=== PATIENT | female | born 1965 | race Caucasian/White ===

== ENCOUNTER 2023-01-31 18:40 | Emergency (ER) | payer BC ==
--- OUTSIDE RECORDS SUMMARY | 2023-01-31 18:47 | XMS REPORT | Continuity of Care Document ---
:1965 Author Organization [facility] t Address [address] [facility] [address] [place] [address] Care Team Providers Name Role Phone Josep Saeed Primary Care Physician Josep Saeed Attending Clinician KATYA CASTILLO Attending Clinician Unavailable Doctor Unassigned, [place] Attending Clinician Unavailable Lab, Ang - Db Attending Clinician Unavailable JOSEP ANTUNEZ Attending Clinician Unavailable j carlos Attending Clinician Unavailable j carlos Admitting Clinician Unavailable Payers Payer Name Policy Type Policy Number Effective Date Expiration Date Susan LEARY - OPEN [id number] 2014 00:00:00 ACCESS PLUS Problems Condition Condition Condition Status Onset Resolution Last Treating Co mments Source Name Details Category Date Date Treatment Clinician Date Encounter Encounter Disease Active 2021-11 Uni vers to to 0-07 [place] [facility] [place] Anxiety Anxiety Disease Active 2021-11 [facility] and [place] 0-07 [place] Gastroesop Gastroesop Disease Active 2021-11 U nivers hageal hageal 0-07 ity of reflux reflux 00:00: [place] disease disease 00 Medical without without Branch esophagiti esophagiti s s Hepatitis, Hepatitis, 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 0-07 it y of 00:00: [place] 00 Medical Branch Mixed Mixed Disease Active 2021-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 hyperlipid 0-07 it y of emia emia 00:00: [place] [facility] Allergy, Allergy, Disease Active 2021-11 Unive rs initial initial 0-07 [place] Insomnia, Insomnia, Disease Active 2021-11 Uni vers unspecifie unspecifie 0-07 it y of d type d type 00:00: [place] 00 Medical Branch Urge Urge Disease Active 2021-11 Univers incontinen incontinen 0-07 it y of ce ce 00:00: [place] [id number] Medical Branch Need for Need for Disease Active 2021-11 Unive rs vaccinatio vaccinatio 0-07 it y of n n 00:00: [place] [facility] [place] Allergies, Adverse Reactions, Alerts Allergy Allergy Status Severity Reaction(s) Onset Inactive Treating Comm ents Source Name Type Date Date Clinician NO KNOWN Drug Active Univers ALLERGIE Class ity of S [facility] Social History Social Habit Start Date Stop Date Quantity Comments Source Exposure to 2022-09-05 2022-09-15 [facility]00 [facility] (event) [place] Tobacco use and 2022-09-15 2022-09-15 Smokeless tobacco Un iversity of exposure 00:00:00 00:00:00 non-user [facility] Alcohol intake 2022-09-15 2022-09-15 Current drinker Unive rsity of 00:00:00 00:00:00 of alcohol [facility] (finding) [place] Alcohol Comment 2022-09-15 2022-09-15 1-2 a week Universit y of 00:00:00 00:00:00 [facility] Sex [birth year] Universit y of 00:00:00 00:00:00 [facility] Smoking Status Start Date Stop Date Source Tobacco smoking consumption Univ ersity of [facility] unknown [place] Never smoked tobacco [facility] Medications Ordered Filled Start Stop Current Ordering Indication Dosage Frequency Signature Comments Components Source Medication Medication Date Date Medication? Clinician (SIG) Name Name MELOXICAM Yes [id number] 7.5mg TAKE 1 Univers 7.5 mg 2-28 TABLET BY ity of tablet 00:00: MOUTH IN [place] 00 THE Medical MORNING. Branch estradioL Yes [id number] Apply 1g Univers (ESTRACE) 1-13 vaginally ity o f 0.01 % (0.1 00:00: at bedtime [place] mg/gram) 00 every Medical vaginal night for Branch cream 2 weeks and then apply 1g vaginally at bedtime 2-3 times per week solifenacin 2022-0 Yes [id number] 10mg Take 1 Univers (VESICARE) 1-13 tablet by ity of 10 mg 00:00: mouth in [place] tablet 00 the Medical morning. Branch estradioL 2022-0 Yes [id number] Apply 1g Univers (ESTRACE) 1-13 vaginally ity o f 0.01 % (0.1 00:00: at bedtime [place] mg/gram) 00 every Medical vaginal night for Branch cream 2 weeks and then apply 1g vaginally at bedtime 2-3 times per week solifenacin 2022-0 Yes [id number] 10mg Take 1 Univers (VESICARE) 1-13 tablet by ity of 10 mg 00:00: mouth in [place] tablet 00 the Medical morning. Branch estradioL 2022-0 Yes [id number] Apply 1g Univers (ESTRACE) 1-13 vaginally ity o f 0.01 % (0.1 00:00: at bedtime [place] mg/gram) 00 every Medical vaginal night for Branch cream 2 weeks and then apply 1g vaginally at bedtime 2-3 times per week solifenacin 2022-0 Yes [id number] 10mg Take 1 Univers (VESICARE) 1-13 tablet by ity of 10 mg 00:00: mouth in [place] tablet 00 the Medical morning. Branch solifenacin 2021-11 Yes [id number] 10mg Take 1 Univers (VESICARE) 0-31 tablet by ity of 10 mg 00:00: mouth in [place] tablet 00 the Medical morning. Branch solifenacin 2021-11 Yes [id number] 10mg Take 1 Univers (VESICARE) 0-31 tablet by ity of 10 mg 00:00: mouth in [place] tablet 00 the Medical morning. Branch solifenacin 2021-11 Yes [id number] 10mg Take 1 Univers (VESICARE) 0-31 tablet by ity of 10 mg 00:00: mouth in [place] tablet 00 the Medical morning. Branch solifenacin 2021-11 Yes [id number] 10mg Take 1 Univers (VESICARE) 0-31 tablet by ity of 10 mg 00:00: mouth in [place] tablet 00 the Medical morning. Branch solifenacin 2021-11 Yes [id number] 10mg Take 1 Univers (VESICARE) 0-31 tablet by ity of 10 mg 00:00: mouth in [place] tablet 00 the Medical morning. Branch solifenacin 2021-11 Yes [id number] 10mg Take 1 Univers (VESICARE) 0-31 tablet by ity of 10 mg 00:00: mouth in [place] tablet 00 the Medical morning. Branch meloxicam 2021-11 Yes [id number] 7.5mg Take 1 Univers 7.5 mg 0-14 tablet by ity of tablet 00:00: mouth in [place] 00 the Medical morning. Branch meloxicam 2021-11 Yes [id number] 7.5mg Take 1 Univers 7.5 mg 0-14 tablet by ity of tablet 00:00: mouth in [place] 00 the Medical morning. Branch meloxicam 2021-11 Yes [id number] 7.5mg Take 1 Univers 7.5 mg 0-14 tablet by ity of tablet 00:00: mouth in [place] the Medical morning. Branch meloxicam 2021-11 Yes [id number] 7.5mg Take 1 Univers 7.5 mg 0-14 tablet by ity of tablet 00:00: mouth in [place] the Medical morning. Branch meloxicam 2021-11 Yes [id number] 7.5mg Take 1 Univers 7.5 mg 0-14 tablet by ity of tablet 00:00: mouth in [place] 00 the Medical morning. Branch meloxicam 2021-11 Yes [id number] 7.5mg Take 1 Univers 7.5 mg 0-14 tablet by ity of tablet 00:00: mouth in [place] 00 the Medical morning. Branch meloxicam 2021-11 Yes [id number] 7.5mg Take 1 Univers 7.5 mg 0-14 tablet by ity of tablet 00:00: mouth in [place] 00 the Medical morning. Branch meloxicam 2021-11 Yes [id number] 7.5mg Take 1 Univers 7.5 mg 0-14 tablet by ity of tablet 00:00: mouth in [place] 00 the Medical morning. Branch meloxicam 2021-11 Yes [id number] 7.5mg Take 1 Univers 7.5 mg 0-14 tablet by ity of tablet 00:00: mouth in [place] 00 the Medical morning. Branch meloxicam 2021-11 Yes [id number] 7.5mg Take 1 Univers 7.5 mg 0-14 tablet by ity of tablet 00:00: mouth in [place] 00 the Medical morning. Branch meloxicam 2021-11 Yes [id number] 7.5mg Take 1 Univers 7.5 mg 0-14 tablet by ity of tablet 00:00: mouth in [place] 00 the Medical morning. Branch meloxicam 2021-11 Yes [id number] 7.5mg Take 1 Univers 7.5 mg 0-14 tablet by ity of tablet 00:00: mouth in [place] 00 the Medical morning. Branch meloxicam 2021-11 Yes [id number] 7.5mg Take 1 Univers 7.5 mg 0-14 tablet by ity of tablet 00:00: mouth in [place] 00 the Medical morning. Branch meloxicam 2021-113- No [id number] 7.5mg Take 1 Univers 7.5 mg 0-14 -28 tablet by ity of tablet 00:00: 00:00 mouth in [place] 00 :00 the Medical morning. Branch omega-3s-dh 2021-11 Yes 600mg Take 600 U nivers a-epa-fish 0-07 mg by ity of oil (FISH 09:14: mouth [place] OIL) 33 daily. Medical 350-600 mg Branch Cap omega-3s-dh 2021-11 Yes 600mg Take 600 U nivers a-epa-fish 0-07 mg by ity of oil (FISH 09:14: mouth [place] OIL) 33 daily. Medical 350-600 mg Branch Cap omega-3s-dh 2021-11 Yes 600mg Take 600 U nivers a-epa-fish 0-07 mg by ity of oil (FISH 09:14: mouth [place] OIL) 33 daily. Medical 350-600 mg Branch Cap omega-3s-dh 2021-11 Yes 600mg Take 600 U nivers a-epa-fish 0-07 mg by ity of oil (FISH 09:14: mouth [place] OIL) 33 daily. Medical 350-600 mg Branch Cap omega-3s-dh 2021-11 Yes 600mg Take 600 U nivers a-epa-fish 0-07 mg by ity of oil (FISH 09:14: mouth [place] OIL) 33 daily. Medical 350-600 mg Branch Cap omega-3s-dh 2022-1 Yes 600mg Take 600 U nivers a-epa-fish 0-07 mg by ity of oil (FISH 09:14: mouth [place] OIL) 33 daily. Medical 350-600 mg Branch Cap omega-3s-dh 2022-1 Yes 600mg Take 600 U nivers a-epa-fish 0-07 mg by ity of oil (FISH 09:14: mouth [place] OIL) 33 daily. Medical 350-600 mg Branch Cap omega-3s-dh 2022-1 Yes 600mg Take 600 U nivers a-epa-fish 0-07 mg by ity of oil (FISH 09:14: mouth [place] OIL) 33 daily. Medical 350-600 mg Branch Cap omega-3s-dh 2022-1 Yes 600mg Take 600 U nivers a-epa-fish 0-07 mg by ity of oil (FISH 09:14: mouth [place] OIL) 33 daily. Medical 350-600 mg Branch Cap omega-3s-dh 2-1 Yes 600mg Take 600 U nivers a-epa-fish 0-07 mg by ity of oil (FISH 09:14: mouth [place] OIL) 33 daily. Medical 350-600 mg Branch Cap omega-3s-dh 2022-1 Yes 600mg Take 600 U nivers a-epa-fish 0-07 mg by ity of oil (FISH 09:14: mouth [place] OIL) 33 daily. Medical 350-600 mg Branch Cap omega-3s-dh 2-1 Yes 600mg Take 600 U nivers a-epa-fish 0-07 mg by ity of oil (FISH 09:14: mouth [place] OIL) 33 daily. Medical 350-600 mg Branch Cap omega-3s-dh 2-1 Yes 600mg Take 600 U nivers a-epa-fish 0-07 mg by ity of oil (FISH 09:14: mouth [place] OIL) 33 daily. Medical 350-600 mg Branch Cap omega-3s-dh 2022-1 Yes 600mg Take 600 U nivers a-epa-fish 0-07 mg by ity of oil (FISH 09:14: mouth [place] OIL) 33 daily. Medical 350-600 mg Branch Cap omega-3s-dh 2022-1 Yes 600mg Take 600 U nivers a-epa-fish 0-07 mg by ity of oil (FISH 09:14: mouth [place] OIL) 33 daily. Medical 350-600 mg Branch Cap omega-3s-dh 2021-11 Yes 600mg Take 600 U nivers a-epa-fish 0-07 mg by ity of oil (FISH 09:14: mouth [place] OIL) 33 daily. Medical 350-600 mg Branch Cap omega-3s-dh 2021-11 Yes 600mg Take 600 U nivers a-epa-fish 0-07 mg by ity of oil (FISH 09:14: mouth [place] OIL) 33 daily. Medical 350-600 mg Branch Cap omega-3s-dh 2021-11 Yes 600mg Take 600 U nivers a-epa-fish 0-07 mg by ity of oil (FISH 09:14: mouth [place] OIL) 33 daily. Medical 350-600 mg Branch Cap cyanocobala 2021-11 Yes 5000ug Take 5,000 Univers min, 0-07 mcg by ity of vitamin 09:12: mouth [place] B-12, 2,500 36 daily. Medica l mcg Tab Branch Cetirizine 2021-11 Yes 10mg Take 10 mg U nivers (ZYRTEC) 10 0-07 by mouth ity of mg capsule 09:12: daily. [place] [address] Medical Branch cyanocobala 2021-11 Yes 5000ug Take 5,000 Univers min, 0-07 mcg by ity of vitamin 09:12: mouth [place] B-12, 2,500 36 daily. Medica l mcg Tab Branch Cetirizine 2021-11 Yes 10mg Take 10 mg U nivers (ZYRTEC) 10 0-07 by mouth ity of mg capsule 09:12: daily. [place] [address] Medical Branch cyanocobala 2021-11 Yes 5000ug Take 5,000 Univers min, 0-07 mcg by ity of vitamin 09:12: mouth [place] B-12, 2,500 36 daily. Medica l mcg Tab Branch Cetirizine 2021-11 Yes 10mg Take 10 mg U nivers (ZYRTEC) 10 0-07 by mouth ity of mg capsule 09:12: daily. [place] [address] Medical Branch cyanocobala 2021-11 Yes 5000ug Take 5,000 Univers min, 0-07 mcg by ity of vitamin 09:12: mouth [place] B-12, 2,500 36 daily. Medica l mcg Tab Branch Cetirizine 2022-1 Yes 10mg Take 10 mg U nivers (ZYRTEC) 10 0-07 by mouth ity of mg capsule 09:12: daily. [address] cyanocobala 2021-11 Yes 5000ug Take 5,000 Univers min, 0-07 mcg by ity of vitamin 09:12: mouth [place] B-12, 2,500 36 daily. Medica l mcg Tab Branch Cetirizine 2021-11 Yes 10mg Take 10 mg U nivers (ZYRTEC) 10 0-07 by mouth ity of mg capsule 09:12: daily. [address] cyanocobala 2021-11 Yes 5000ug Take 5,000 Univers min, 0-07 mcg by ity of vitamin 09:12: mouth [place] B-12, 2,500 36 daily. Medica l mcg Tab Branch Cetirizine 2021-11 Yes 10mg Take 10 mg U nivers (ZYRTEC) 10 0-07 by mouth ity of mg capsule 09:12: daily. [address] cyanocobala 2021-11 Yes 5000ug Take 5,000 Univers min, 0-07 mcg by ity of vitamin 09:12: mouth [place] B-12, 2,500 36 daily. Medica l mcg Tab Branch Cetirizine 2021-11 Yes 10mg Take 10 mg U nivers (ZYRTEC) 10 0-07 by mouth ity of mg capsule 09:12: daily. [address] cyanocobala 2021-11 Yes 5000ug Take 5,000 Univers min, 0-07 mcg by ity of vitamin 09:12: mouth [place] B-12, 2,500 36 daily. Medica l mcg Tab Branch Cetirizine 2021-11 Yes 10mg Take 10 mg U nivers (ZYRTEC) 10 0-07 by mouth ity of mg capsule 09:12: daily. [address] cyanocobala 2021-11 Yes 5000ug Take 5,000 Univers min, 0-07 mcg by ity of vitamin 09:12: mouth [place] B-12, 2,500 36 daily. Medica l mcg Tab Branch Cetirizine 2021-11 Yes 10mg Take 10 mg U nivers (ZYRTEC) 10 0-07 by mouth ity of mg capsule 09:12: daily. [address] cyanocobala 2021-11 Yes 5000ug Take 5,000 Univers min, 0-07 mcg by ity of vitamin 09:12: mouth [place] B-12, 2,500 36 daily. Medica l mcg Tab Branch Cetirizine 2021-11 Yes 10mg Take 10 mg U nivers (ZYRTEC) 10 0-07 by mouth ity of mg capsule 09:12: daily. [address] cyanocobala 2021-11 Yes 5000ug Take 5,000 Univers min, 0-07 mcg by ity of vitamin 09:12: mouth [place] B-12, 2,500 36 daily. Medica l mcg Tab Branch Cetirizine 2021-11 Yes 10mg Take 10 mg U nivers (ZYRTEC) 10 0-07 by mouth ity of mg capsule 09:12: daily. [address] cyanocobala 2021-11 Yes 5000ug Take 5,000 Univers min, 0-07 mcg by ity of vitamin 09:12: mouth [place] B-12, 2,500 36 daily. Medica l mcg Tab Branch Cetirizine 2021-11 Yes 10mg Take 10 mg U nivers (ZYRTEC) 10 0-07 by mouth ity of mg capsule 09:12: daily. [address] cyanocobala 2021-11 Yes 5000ug Take 5,000 Univers min, 0-07 mcg by ity of vitamin 09:12: mouth [place] B-12, 2,500 36 daily. Medica l mcg Tab Branch Cetirizine 2021-11 Yes 10mg Take 10 mg U nivers (ZYRTEC) 10 0-07 by mouth ity of mg capsule 09:12: daily. [address] cyanocobala 2021-11 Yes 5000ug Take 5,000 Univers min, 0-07 mcg by ity of vitamin 09:12: mouth [place] B-12, 2,500 36 daily. Medica l mcg Tab Branch Cetirizine 2021-11 Yes 10mg Take 10 mg U nivers (ZYRTEC) 10 0-07 by mouth ity of mg capsule 09:12: daily. [address] cyanocobala 2021-11 Yes 5000ug Take 5,000 Univers min, 0-07 mcg by ity of vitamin 09:12: mouth [place] B-12, 2,500 36 daily. Medica l mcg Tab [place] Cetirizine 2021-11 Yes 10mg Take 10 mg U nivers (ZYRTEC) 10 0-07 by mouth ity of mg capsule 09:12: daily. [address] cyanocobala 2021-11 Yes 5000ug Take 5,000 Univers min, 0-07 mcg by ity of vitamin 09:12: mouth [place] B-12, 2,500 36 daily. Medica l mcg Tab [place] Cetirizine 2021-11 Yes 10mg Take 10 mg U nivers (ZYRTEC) 10 0-07 by mouth ity of mg capsule 09:12: daily. [address] cyanocobala 2021-11 Yes 5000ug Take 5,000 Univers min, 0-07 mcg by ity of vitamin 09:12: mouth [place] B-12, 2,500 36 daily. Medica l mcg Tab [place] Cetirizine 2021-11 Yes 10mg Take 10 mg U nivers (ZYRTEC) 10 0-07 by mouth ity of mg capsule 09:12: daily. [address] cyanocobala 2021-11 Yes 5000ug Take 5,000 Univers min, 0-07 mcg by ity of vitamin 09:12: mouth [place] B-12, 2,500 36 daily. Medica l mcg Tab [place] Cetirizine 2021-11 Yes 10mg Take 10 mg U nivers (ZYRTEC) 10 0-07 by mouth ity of mg capsule 09:12: daily. [address] azaTHIOprin 2021-11 Yes [id number] 75mg Take 1.5 Univers e 50 mg 0-07 tablets by ity of tablet 00:00: mouth in [place] 00 the Medical morning. Branch lamoTRIgine 2021-11 Yes [id number] 100mg Take 1 Univers 100 mg 0-07 tablet by ity of tablet 00:00: mouth in [place] 00 the Medical morning. Branch montelukast 2021-11 Yes [id number] 10mg Take 1 Univers 10 mg 0-07 tablet by ity of tablet 00:00: mouth in [place] 00 the Medical morning. Branch mycophenola 2021-11 Yes [id number] 500mg Take 1 Univers te mofetil 0-07 tablet by ity of 500 mg 00:00: mouth in [place] tablet 00 the Medical morning. Branch omeprazole 2021-11 Yes [id number] 40mg Take 1 Univers 40 mg 0-07 capsule by ity of capsule 00:00: mouth in [place] 00 the Medical morning. Branch simvastatin 2021-11 Yes [id number] 40mg Take 1 Univers 40 mg 0-07 tablet by ity of tablet 00:00: mouth in [place] 00 the Medical morning. Branch traZODone 2021-11 Yes [id number] 100mg Take 1-2 Univers 100 mg 0-07 tablets by ity of tablet 00:00: mouth in [place] 00 the Medical morning. Branch venlafaxine 2021-11 Yes [id number] 150mg Take 1 Univers XR 150 mg 0-07 capsule by ity of 24 hr 00:00: mouth in [place] capsule 00 the Medical morning. Branch azaTHIOprin 2021-11 Yes [id number] 75mg Take 1.5 Univers e 50 mg 0-07 tablets by ity of tablet 00:00: mouth in [place] 00 the Medical morning. Branch lamoTRIgine 2021-11 Yes [id number] 100mg Take 1 Univers 100 mg 0-07 tablet by ity of tablet 00:00: mouth in [place] 00 the Medical morning. Branch montelukast 2021-11 Yes [id number] 10mg Take 1 Univers 10 mg 0-07 tablet by ity of tablet 00:00: mouth in [place] 00 the Medical morning. Branch mycophenola 2021-11 Yes [id number] 500mg Take 1 Univers te mofetil 0-07 tablet by ity of 500 mg 00:00: mouth in [place] tablet 00 the Medical morning. Branch omeprazole 2021-11 Yes [id number] 40mg Take 1 Univers 40 mg 0-07 capsule by ity of capsule 00:00: mouth in [place] 00 the Medical morning. Branch simvastatin 2021-11 Yes [id number] 40mg Take 1 Univers 40 mg 0-07 tablet by ity of tablet 00:00: mouth in [place] 00 the Medical morning. Branch traZODone 2021-11 Yes [id number] 100mg Take 1-2 Univers 100 mg 0-07 tablets by ity of tablet 00:00: mouth in [place] 00 the Medical morning. Branch venlafaxine 2021-11 Yes [id number] 150mg Take 1 Univers XR 150 mg 0-07 capsule by ity of 24 hr 00:00: mouth in [place] capsule 00 the Medical morning. Branch azaTHIOprin 2021-11 Yes [id number] 75mg Take 1.5 Univers e 50 mg 0-07 tablets by ity of tablet 00:00: mouth in [place] 00 the Medical morning. Branch lamoTRIgine 2021-11 Yes [id number] 100mg Take 1 Univers 100 mg 0-07 tablet by ity of tablet 00:00: mouth in [place] 00 the Medical morning. Branch montelukast 2021-11 Yes [id number] 10mg Take 1 Univers 10 mg 0-07 tablet by ity of tablet 00:00: mouth in [place] 00 the Medical morning. Branch mycophenola 2021-11 Yes [id number] 500mg Take 1 Univers te mofetil 0-07 tablet by ity of 500 mg 00:00: mouth in [place] tablet 00 the Medical morning. Branch omeprazole 2021-11 Yes [id number] 40mg Take 1 Univers 40 mg 0-07 capsule by ity of capsule 00:00: mouth in [place] 00 the Medical morning. Branch simvastatin 2021-11 Yes [id number] 40mg Take 1 Univers 40 mg 0-07 tablet by ity of tablet 00:00: mouth in [place] 00 the Medical morning. Branch traZODone 2021-11 Yes [id number] 100mg Take 1-2 Univers 100 mg 0-07 tablets by ity of tablet 00:00: mouth in [place] 00 the Medical morning. Branch venlafaxine 2021-11 Yes [id number] 150mg Take 1 Univers XR 150 mg 0-07 capsule by ity of 24 hr 00:00: mouth in [place] capsule 00 the Medical morning. Branch azaTHIOprin 2021-11 Yes [id number] 75mg Take 1.5 Univers e 50 mg 0-07 tablets by ity of tablet 00:00: mouth in [place] 00 the Medical morning. Branch lamoTRIgine 2021-11 Yes [id number] 100mg Take 1 Univers 100 mg 0-07 tablet by ity of tablet 00:00: mouth in [place] 00 the Medical morning. Branch montelukast 2021-11 Yes [id number] 10mg Take 1 Univers 10 mg 0-07 tablet by ity of tablet 00:00: mouth in [place] 00 the Medical morning. Branch mycophenola 2021-11 Yes [id number] 500mg Take 1 Univers te mofetil 0-07 tablet by ity of 500 mg 00:00: mouth in [place] tablet 00 the Medical morning. Branch omeprazole 2021-11 Yes [id number] 40mg Take 1 Univers 40 mg 0-07 capsule by ity of capsule 00:00: mouth in [place] 00 the Medical morning. Branch simvastatin 2021-11 Yes [id number] 40mg Take 1 Univers 40 mg 0-07 tablet by ity of tablet 00:00: mouth in [place] 00 the Medical morning. Branch traZODone 2021-11 Yes [id number] 100mg Take 1-2 Univers 100 mg 0-07 tablets by ity of tablet 00:00: mouth in [place] 00 the Medical morning. Branch venlafaxine 2021-11 Yes [id number] 150mg Take 1 Univers XR 150 mg 0-07 capsule by ity of 24 hr 00:00: mouth in [place] capsule 00 the Medical morning. Branch azaTHIOprin 2021-11 Yes [id number] 75mg Take 1.5 Univers e 50 mg 0-07 tablets by ity of tablet 00:00: mouth in [place] 00 the Medical morning. Branch lamoTRIgine 2021-11 Yes [id number] 100mg Take 1 Univers 100 mg 0-07 tablet by ity of tablet 00:00: mouth in [place] the Medical morning. Branch montelukast 2021-11 Yes [id number] 10mg Take 1 Univers 10 mg 0-07 tablet by ity of tablet 00:00: mouth in [place] 00 the Medical morning. Branch mycophenola 2021-11 Yes [id number] 500mg Take 1 Univers te mofetil 0-07 tablet by ity of 500 mg 00:00: mouth in [place] tablet 00 the Medical morning. Branch omeprazole 2021-11 Yes [id number] 40mg Take 1 Univers 40 mg 0-07 capsule by ity of capsule 00:00: mouth in [place] 00 the Medical morning. Branch simvastatin 2021-11 Yes [id number] 40mg Take 1 Univers 40 mg 0-07 tablet by ity of tablet 00:00: mouth in [place] 00 the Medical morning. Branch traZODone 2021-11 Yes [id number] 100mg Take 1-2 Univers 100 mg 0-07 tablets by ity of tablet 00:00: mouth in [place] 00 the Medical morning. Branch venlafaxine 2021-11 Yes [id number] 150mg Take 1 Univers XR 150 mg 0-07 capsule by ity of 24 hr 00:00: mouth in [place] capsule 00 the Medical morning. Branch azaTHIOprin 2021-11 Yes [id number] 75mg Take 1.5 Univers e 50 mg 0-07 tablets by ity of tablet 00:00: mouth in [place] 00 the Medical morning. Branch lamoTRIgine 2021-11 Yes [id number] 100mg Take 1 Univers 100 mg 0-07 tablet by ity of tablet 00:00: mouth in [place] 00 the Medical morning. Branch montelukast 2021-11 Yes [id number] 10mg Take 1 Univers 10 mg 0-07 tablet by ity of tablet 00:00: mouth in [place] 00 the Medical morning. Branch mycophenola 2021-11 Yes [id number] 500mg Take 1 Univers te mofetil 0-07 tablet by ity of 500 mg 00:00: mouth in [place] tablet 00 the Medical morning. Branch omeprazole 2021-11 Yes [id number] 40mg Take 1 Univers 40 mg 0-07 capsule by ity of capsule 00:00: mouth in [place] 00 the Medical morning. Branch simvastatin 2021-11 Yes [id number] 40mg Take 1 Univers 40 mg 0-07 tablet by ity of tablet 00:00: mouth in [place] 00 the Medical morning. Branch traZODone 2021-11 Yes [id number] 100mg Take 1-2 Univers 100 mg 0-07 tablets by ity of tablet 00:00: mouth in [place] 00 the Medical morning. Branch venlafaxine 2021-11 Yes [id number] 150mg Take 1 Univers XR 150 mg 0-07 capsule by ity of 24 hr 00:00: mouth in [place] capsule 00 the Medical morning. Branch azaTHIOprin 2021-11 Yes [id number] 75mg Take 1.5 Univers e 50 mg 0-07 tablets by ity of tablet 00:00: mouth in [place] 00 the Medical morning. Branch lamoTRIgine 2021-11 Yes [id number] 100mg Take 1 Univers 100 mg 0-07 tablet by ity of tablet 00:00: mouth in [place] 00 the Medical morning. Branch montelukast 2021-11 Yes [id number] 10mg Take 1 Univers 10 mg 0-07 tablet by ity of tablet 00:00: mouth in [place] 00 the Medical morning. Branch mycophenola 2021-11 Yes [id number] 500mg Take 1 Univers te mofetil 0-07 tablet by ity of 500 mg 00:00: mouth in [place] tablet 00 the Medical morning. Branch omeprazole 2021-11 Yes [id number] 40mg Take 1 Univers 40 mg 0-07 capsule by ity of capsule 00:00: mouth in [place] 00 the Medical morning. Branch simvastatin 2021-11 Yes [id number] 40mg Take 1 Univers 40 mg 0-07 tablet by ity of tablet 00:00: mouth in [place] 00 the Medical morning. Branch traZODone 2021-11 Yes [id number] 100mg Take 1-2 Univers 100 mg 0-07 tablets by ity of tablet 00:00: mouth in [place] 00 the Medical morning. Branch venlafaxine 2021-11 Yes [id number] 150mg Take 1 Univers XR 150 mg 0-07 capsule by ity of 24 hr 00:00: mouth in [place] capsule 00 the Medical morning. Branch azaTHIOprin 2021-11 Yes [id number] 75mg Take 1.5 Univers e 50 mg 0-07 tablets by ity of tablet 00:00: mouth in [place] 00 the Medical morning. Branch lamoTRIgine 2021-11 Yes [id number] 100mg Take 1 Univers 100 mg 0-07 tablet by ity of tablet 00:00: mouth in [place] 00 the Medical morning. Branch montelukast 2021-11 Yes [id number] 10mg Take 1 [facility] 10 mg 0-07 tablet by [facility] tablet 00:00: mouth in [place] 00 the Medical morning. Branch mycophenola 2021-11 Yes [id number] 500mg Take 1 [facility] te mofetil 0-07 tablet by [facility] of 500 mg 00:00: mouth in [place] tablet 00 the Medical morning. Branch omeprazole 2021-11 Yes [id number] 40mg Take 1 [facility] 40 mg 0-07 capsule by [facility] capsule 00:00: mouth in [place] 00 the Medical morning. Branch simvastatin 2021-11 Yes [id number] 40mg Take 1 [facility] 40 mg 0-07 tablet by [facility] tablet 00:00: mouth in [place] 00 the Medical morning. Branch traZODone 2021-11 Yes [id number] 100mg Take 1-2 [facility] 100 mg 0-07 tablets by [facility] of tablet 00:00: mouth in [place] 00 the Medical morning. Branch venlafaxine 2021-11 Yes [id number] 150mg Take 1 [facility] XR 150 mg 0-07 capsule by [facility] of 24 hr 00:00: mouth in [place] capsule 00 the Medical morning. Branch azaTHIOprin 2021-11 Yes [id number] 75mg Take 1.5 [facility] e 50 mg 0-07 tablets by [facility] of tablet 00:00: mouth in [place] 00 the Medical morning. Branch lamoTRIgine 2021-11 Yes [id number] 100mg Take 1 [facility] 100 mg 0-07 tablet by [facility] of tablet 00:00: mouth in [place] 00 the Medical morning. Branch azaTHIOprin 2021-11 Yes [id number] 75mg Take 1.5 [facility] e 50 mg 0-07 tablets by [facility] of tablet 00:00: mouth in [place] 00 the Medical morning. Branch lamoTRIgine 2021-11 Yes [id number] 100mg Take 1 [facility] 100 mg 0-07 tablet by [facility] of tablet 00:00: mouth in [place] 00 the Medical morning. Branch montelukast 2021-11 Yes [id number] 10mg Take 1 [facility] 10 mg 0-07 tablet by [facility] tablet 00:00: mouth in [place] 00 the Medical morning. Branch mycophenola 2021-11 Yes [id number] 500mg Take 1 [facility] te mofetil 0-07 tablet by [facility] of 500 mg 00:00: mouth in [place] tablet 00 the Medical morning. Branch omeprazole 2021-11 Yes [id number] 40mg Take 1 [facility] 40 mg 0-07 capsule by [facility] of capsule 00:00: mouth in [place] 00 the Medical morning. Branch simvastatin 2021-11 Yes [id number] 40mg Take 1 [facility] 40 mg 0-07 tablet by [facility] of tablet 00:00: mouth in [place] 00 the Medical morning. Branch traZODone 2021-11 Yes [id number] 100mg Take 1-2 [facility] 100 mg 0-07 tablets by [facility] of tablet 00:00: mouth in [place] 00 the Medical morning. Branch montelukast 2021-11 Yes [id number] 10mg Take 1 [facility] 10 mg 0-07 tablet by [facility] of tablet 00:00: mouth in [place] 00 the Medical morning. Branch venlafaxine 2021-11 Yes [id number] 150mg Take 1 [facility] XR 150 mg 0-07 capsule by [facility] of 24 hr 00:00: mouth in [place] capsule 00 the Medical morning. Branch mycophenola 2021-11 Yes [id number] 500mg Take 1 [facility] te mofetil 0-07 tablet by [facility] of 500 mg 00:00: mouth in [place] tablet 00 the Medical morning. Branch azaTHIOprin 2021-11 Yes [id number] 75mg Take 1.5 [facility] e 50 mg 0-07 tablets by [facility] of tablet 00:00: mouth in [place] 00 the Medical morning. Branch lamoTRIgine 2021-11 Yes [id number] 100mg Take 1 [facility] 100 mg 0-07 tablet by [facility] of tablet 00:00: mouth in [place] 00 the Medical morning. Branch montelukast 2021-11 Yes [id number] 10mg Take 1 [facility] 10 mg 0-07 tablet by [facility] of tablet 00:00: mouth in [place] 00 the Medical morning. Branch mycophenola 2021-11 Yes [id number] 500mg Take 1 [facility] te mofetil 0-07 tablet by [facility] of 500 mg 00:00: mouth in [place] tablet 00 the Medical morning. Branch omeprazole 2021-11 Yes [id number] 40mg Take 1 [facility] 40 mg 0-07 capsule by [facility] of capsule 00:00: mouth in [place] 00 the Medical morning. Branch simvastatin 2021-11 Yes [id number] 40mg Take 1 [facility] 40 mg 0-07 tablet by [facility] of tablet 00:00: mouth in [place] 00 the Medical morning. Branch traZODone 2021-11 Yes [id number] 100mg Take 1-2 [facility] 100 mg 0-07 tablets by [facility] of tablet 00:00: mouth in [place] 00 the Medical morning. Branch omeprazole 2021-11 Yes [id number] 40mg Take 1 [facility] 40 mg 0-07 capsule by [facility] of capsule 00:00: mouth in [place] 00 the Medical morning. Branch venlafaxine 2021-11 Yes [id number] 150mg Take 1 [facility] XR 150 mg 0-07 capsule by [facility] of 24 hr 00:00: mouth in [place] capsule 00 the Medical morning. Branch simvastatin 2021-11 Yes [id number] 40mg Take 1 [facility] 40 mg 0-07 tablet by [facility] of tablet 00:00: mouth in [place] 00 the Medical morning. Branch azaTHIOprin 2021-11 Yes [id number] 75mg Take 1.5 [facility] e 50 mg 0-07 tablets by [facility] of tablet 00:00: mouth in [place] 00 the Medical morning. Branch lamoTRIgine 2021-11 Yes [id number] 100mg Take 1 [facility] 100 mg 0-07 tablet by [facility] of tablet 00:00: mouth in [place] 00 the Medical morning. Branch montelukast 2021-11 Yes [id number] 10mg Take 1 [facility] 10 mg 0-07 tablet by [facility] of tablet 00:00: mouth in [place] 00 the Medical morning. Branch mycophenola 2021-11 Yes [id number] 500mg Take 1 [facility] te mofetil 0-07 tablet by [facility] of 500 mg 00:00: mouth in [place] tablet 00 the Medical morning. Branch omeprazole 2021-11 Yes [id number] 40mg Take 1 [facility] 40 mg 0-07 capsule by [facility] of capsule 00:00: mouth in [place] 00 the Medical morning. Branch traZODone 2021-11 Yes [id number] 100mg Take 1-2 [facility] 100 mg 0-07 tablets by [facility] of tablet 00:00: mouth in [place] 00 the Medical morning. Branch simvastatin 2021-11 Yes [id number] 40mg Take 1 [facility] 40 mg 0-07 tablet by [facility] of tablet 00:00: mouth in [place] 00 the Medical morning. Branch traZODone 2021-11 Yes [id number] 100mg Take 1-2 [facility] 100 mg 0-07 tablets by [facility] of tablet 00:00: mouth in [place] 00 the Medical morning. Branch venlafaxine 2021-11 Yes [id number] 150mg Take 1 [facility] XR 150 mg 0-07 capsule by [facility] of 24 hr 00:00: mouth in [place] capsule 00 the Medical morning. Branch venlafaxine 2021-11 Yes [id number] 150mg Take 1 [facility] XR 150 mg 0-07 capsule by [facility] of 24 hr 00:00: mouth in [place] capsule 00 the Medical morning. Branch azaTHIOprin 2021-11 Yes [id number] 75mg Take 1.5 [facility] e 50 mg 0-07 tablets by [facility] of tablet 00:00: mouth in [place] 00 the Medical morning. Branch lamoTRIgine 2021-11 Yes [id number] 100mg Take 1 [facility] 100 mg 0-07 tablet by [facility] of tablet 00:00: mouth in [place] 00 the Medical morning. Branch montelukast 2021-11 Yes [id number] 10mg Take 1 [facility] 10 mg 0-07 tablet by [facility] of tablet 00:00: mouth in [place] 00 the Medical morning. Branch mycophenola 2021-11 Yes [id number] 500mg Take 1 [facility] te mofetil 0-07 tablet by [facility] of 500 mg 00:00: mouth in [place] tablet 00 the Medical morning. Branch omeprazole 2021-11 Yes [id number] 40mg Take 1 [facility] 40 mg 0-07 capsule by [facility] of capsule 00:00: mouth in [place] 00 the Medical morning. Branch simvastatin 2021-11 Yes [id number] 40mg Take 1 [facility] 40 mg 0-07 tablet by [facility] of tablet 00:00: mouth in [place] 00 the Medical morning. Branch traZODone 2021-11 Yes [id number] 100mg Take 1-2 [facility] 100 mg 0-07 tablets by [facility] of tablet 00:00: mouth in [place] 00 the Medical morning. Branch venlafaxine 2021-11 Yes [id number] 150mg Take 1 [facility] XR 150 mg 0-07 capsule by [facility] of 24 hr 00:00: mouth in [place] capsule 00 the Medical morning. Branch azaTHIOprin 2021-11 Yes [id number] 75mg Take 1.5 [facility] e 50 mg 0-07 tablets by [facility] of tablet 00:00: mouth in [place] 00 the Medical morning. Branch lamoTRIgine 2021-11 Yes [id number] 100mg Take 1 [facility] 100 mg 0-07 tablet by [facility] of tablet 00:00: mouth in [place] 00 the Medical morning. [place] montelukast 2021-11 Yes [id number] 10mg Take 1 [facility] 10 mg 0-07 tablet by [facility] of tablet 00:00: mouth in [place] 00 the Medical morning. Branch mycophenola 2021-11 Yes [id number] 500mg Take 1 [facility] te mofetil 0-07 tablet by [facility] of 500 mg 00:00: mouth in [place] tablet 00 the Medical morning. Branch omeprazole 2021-11 Yes [id number] 40mg Take 1 [facility] 40 mg 0-07 capsule by [facility] of capsule 00:00: mouth in [place] 00 the Medical morning. Branch simvastatin 2021-11 Yes [id number] 40mg Take 1 [facility] 40 mg 0-07 tablet by [facility] of tablet 00:00: mouth in [place] 00 the Medical morning. Branch traZODone 2021-11 Yes [id number] 100mg Take 1-2 [facility] 100 mg 0-07 tablets by [facility] of tablet 00:00: mouth in [place] 00 the Medical morning. Branch venlafaxine 2021-11 Yes [id number] 150mg Take 1 [facility] XR 150 mg 0-07 capsule by [facility] of 24 hr 00:00: mouth in [place] capsule 00 the Medical morning. Branch azaTHIOprin 2021-11 Yes [id number] 75mg Take 1.5 [facility] e 50 mg 0-07 tablets by [facility] of tablet 00:00: mouth in [place] 00 the Medical morning. Branch lamoTRIgine 2021-11 Yes [id number] 100mg Take 1 [facility] 100 mg 0-07 tablet by [facility] of tablet 00:00: mouth in [place] 00 the Medical morning. Branch montelukast 2021-11 Yes [id number] 10mg Take 1 [facility] 10 mg 0-07 tablet by [facility] of tablet 00:00: mouth in [place] 00 the Medical morning. Branch mycophenola 2021-11 Yes [id number] 500mg Take 1 [facility] te mofetil 0-07 tablet by [facility] of 500 mg 00:00: mouth in [place] tablet 00 the Medical morning. Branch omeprazole 2021-11 Yes [id number] 40mg Take 1 [facility] 40 mg 0-07 capsule by [facility] of capsule 00:00: mouth in [place] 00 the Medical morning. Branch simvastatin 2021-11 Yes [id number] 40mg Take 1 [facility] 40 mg 0-07 tablet by [facility] of tablet 00:00: mouth in [place] 00 the Medical morning. Branch traZODone 2021-11 Yes [id number] 100mg Take 1-2 [facility] 100 mg 0-07 tablets by [facility] of tablet 00:00: mouth in [place] 00 the Medical morning. Branch venlafaxine 2021-11 Yes [id number] 150mg Take 1 [facility] XR 150 mg 0-07 capsule by [facility] of 24 hr 00:00: mouth in [place] capsule 00 the Medical morning. Branch azaTHIOprin 2021-11 Yes [id number] 75mg Take 1.5 [facility] e 50 mg 0-07 tablets by [facility] of tablet 00:00: mouth in [place] 00 the Medical morning. Branch lamoTRIgine 2021-11 Yes [id number] 100mg Take 1 [facility] 100 mg 0-07 tablet by [facility] of tablet 00:00: mouth in [place] 00 the Medical morning. Branch montelukast 2021-11 Yes [id number] 10mg Take 1 [facility] 10 mg 0-07 tablet by [facility] of tablet 00:00: mouth in [place] 00 the Medical morning. Branch mycophenola 2021-11 Yes [id number] 500mg Take 1 [facility] te mofetil 0-07 tablet by [facility] of 500 mg 00:00: mouth in [place] tablet 00 the Medical morning. Branch omeprazole 2021-11 Yes [id number] 40mg Take 1 [facility] 40 mg 0-07 capsule by [facility] of capsule 00:00: mouth in [place] 00 the Medical morning. Branch simvastatin 2021-11 Yes [id number] 40mg Take 1 [facility] 40 mg 0-07 tablet by [facility] of tablet 00:00: mouth in [place] 00 the Medical morning. Branch traZODone 2021-11 Yes [id number] 100mg Take 1-2 [facility] 100 mg 0-07 tablets by [facility] of tablet 00:00: mouth in [place] 00 the Medical morning. Branch venlafaxine 2021-11 Yes [id number] 150mg Take 1 [facility] XR 150 mg 0-07 capsule by [facility] of 24 hr 00:00: mouth in [place] capsule 00 the Medical morning. Branch azaTHIOprin 2021-11 Yes [id number] 75mg Take 1.5 [facility] e 50 mg 0-07 tablets by [facility] of tablet 00:00: mouth in [place] 00 the Medical morning. Branch lamoTRIgine 2021-11 Yes [id number] 100mg Take 1 [facility] 100 mg 0-07 tablet by [facility] of tablet 00:00: mouth in [place] 00 the Medical morning. Branch montelukast 2021-11 Yes [id number] 10mg Take 1 [facility] 10 mg 0-07 tablet by [facility] of tablet 00:00: mouth in [place] 00 the Medical morning. Branch mycophenola 2021-11 Yes [id number] 500mg Take 1 [facility] te mofetil 0-07 tablet by [facility] of 500 mg 00:00: mouth in [place] tablet 00 the Medical morning. Branch omeprazole 2021-11 Yes [id number] 40mg Take 1 [facility] 40 mg 0-07 capsule by [facility] of capsule 00:00: mouth in [place] 00 the Medical morning. Branch simvastatin 2021-11 Yes [id number] 40mg Take 1 [facility] 40 mg 0-07 tablet by [facility] of tablet 00:00: mouth in [place] 00 the Medical morning. Branch traZODone 2021-11 Yes [id number] 100mg Take 1-2 [facility] 100 mg 0-07 tablets by [facility] of tablet 00:00: mouth in [place] 00 the Medical morning. Branch venlafaxine 2021-11 Yes [id number] 150mg Take 1 [facility] XR 150 mg 0-07 capsule by [facility] of 24 hr 00:00: mouth in [place] capsule 00 the Medical morning. Branch azaTHIOprin 2021-11 Yes [id number] 75mg Take 1.5 [facility] e 50 mg 0-07 tablets by [facility] of tablet 00:00: mouth in [place] 00 the Medical morning. Branch lamoTRIgine 2021-11 Yes [id number] 100mg Take 1 [facility] 100 mg 0-07 tablet by [facility] of tablet 00:00: mouth in [place] 00 the Medical morning. Branch montelukast 2021-11 Yes [id number] 10mg Take 1 [facility] 10 mg 0-07 tablet by [facility] of tablet 00:00: mouth in [place] 00 the Medical morning. Branch mycophenola 2021-11 Yes [id number] 500mg Take 1 [facility] te mofetil 0-07 tablet by [facility] of 500 mg 00:00: mouth in [place] tablet 00 the Medical morning. Branch omeprazole 2021-11 Yes [id number] 40mg Take 1 [facility] 40 mg 0-07 capsule by [facility] of capsule 00:00: mouth in [place] 00 the Medical morning. Branch simvastatin 2021-11 Yes [id number] 40mg Take 1 [facility] 40 mg 0-07 tablet by [facility] of tablet 00:00: mouth in [place] 00 the Medical morning. Branch traZODone 2021-11 Yes [id number] 100mg Take 1-2 [facility] 100 mg 0-07 tablets by [facility] of tablet 00:00: mouth in [place] 00 the Medical morning. Branch venlafaxine 2021-11 Yes [id number] 150mg Take 1 [facility] XR 150 mg 0-07 capsule by [facility] of 24 hr 00:00: mouth in [place] capsule 00 the Medical morning. Branch cyclobenzap Yes 10mg Take 10 mg [facility] rine 10 mg 7-06 by mouth ity o f tablet 00:00: in the [place] 00 morning. Medical Branch cyclobenzap 2022-0 Yes 10mg Take 10 mg [facility] rine 10 mg 7-06 by mouth ity o f tablet 00:00: in the [place] 00 morning. Medical Branch cyclobenzap 2022-0 Yes 10mg Take 10 mg [facility] rine 10 mg 7-06 by mouth ity o f tablet 00:00: in the [place] 00 morning. Medical Branch cyclobenzap 2022-0 Yes 10mg Take 10 mg [facility] rine 10 mg 7-06 by mouth ity o f tablet 00:00: in the [place] 00 morning. Medical Branch cyclobenzap 2022-0 Yes 10mg Take 10 mg [facility] rine 10 mg 7-06 by mouth ity o f tablet 00:00: in the [place] 00 morning. Medical Branch cyclobenzap 2022-0 Yes 10mg Take 10 mg [facility] rine 10 mg 7-06 by mouth ity o f tablet 00:00: in the [place] 00 morning. Medical Branch cyclobenzap 2022-0 Yes 10mg Take 10 mg [facility] rine 10 mg 7-06 by mouth ity o f tablet 00:00: in the [place] 00 morning. Medical Branch cyclobenzap 2022-0 Yes 10mg Take 10 mg [facility] rine 10 mg 7-06 by mouth ity o f tablet 00:00: in the [place] 00 morning. Medical Branch cyclobenzap 2022-0 Yes 10mg Take 10 mg [facility] rine 10 mg 7-06 by mouth ity o f tablet 00:00: in the [place] 00 morning. Medical Branch cyclobenzap 2022-0 Yes 10mg Take 10 mg [facility] rine 10 mg 7-06 by mouth ity o f tablet 00:00: in the [place] 00 morning. Medical Branch cyclobenzap 2022-0 Yes 10mg Take 10 mg [facility] rine 10 mg 7-06 by mouth ity o f tablet 00:00: in the [place] 00 morning. Medical Branch cyclobenzap 2022-0 Yes 10mg Take 10 mg [facility] rine 10 mg 7-06 by mouth ity o f tablet 00:00: in the [place] 00 morning. Medical Branch cyclobenzap 2022-0 Yes 10mg Take 10 mg [facility] rine 10 mg 7-06 by mouth ity o f tablet 00:00: in the [place] 00 morning. Medical Branch cyclobenzap 2022-0 Yes 10mg Take 10 mg [facility] rine 10 mg 7-06 by mouth ity o f tablet 00:00: in the [place] 00 morning. Medical Branch cyclobenzap 2022-0 Yes 10mg Take 10 mg [facility] rine 10 mg 7-06 by mouth ity o f tablet 00:00: in the [place] 00 morning. Medical Branch cyclobenzap 2022-0 Yes 10mg Take 10 mg [facility] rine 10 mg 7-06 by mouth ity o f tablet 00:00: in the [place] 00 morning. Medical Branch cyclobenzap 2022-0 Yes 10mg Take 10 mg [facility] rine 10 mg 7-06 by mouth ity o f tablet 00:00: in the [place] 00 morning. Medical Branch cyclobenzap 2022-0 Yes 10mg Take 10 mg [facility] rine 10 mg 7-06 by mouth ity o f tablet 00:00: in the [place] 00 morning. Medical Branch omeprazole 2022-0 2022- No 40mg Take 40 mg [facility] 40 mg 7-06 10-07 by mouth ity of capsule 00:00: 00:00 in the [place] 00 :00 morning. Medical Branch omeprazole 2022-0 2022- No 40mg Take 40 mg [facility] 40 mg 7-06 10-07 by mouth ity of capsule 00:00: 00:00 in the [place] 00 :00 morning. Medical Branch lamoTRIgine 2022-0 2022- No 100mg Take 100 [facility] 100 mg 6-16 10-07 mg by ity of tablet 00:00: 00:00 mouth in [place] 00 :00 the Medical morning. Branch lamoTRIgine 2022-0 2022- No 100mg Take 100 [facility] 100 mg 6-16 10-07 mg by ity of tablet 00:00: 00:00 mouth in [place] 00 :00 the Medical morning. Branch montelukast 2022-0 2022- No 10mg Take 10 mg [facility] 10 mg 4-11 10-07 by mouth ity of tablet 00:00: 00:00 in the [place] 00 :00 morning. Medical Branch montelukast 2022-0 2022- No 10mg Take 10 mg [facility] 10 mg 4-11 10-07 by mouth ity of tablet 00:00: 00:00 in the [place] 00 :00 morning. Medical Branch simvastatin 2022-0 2022- No 40mg Take 40 mg [facility] 40 mg 3-07 10-07 by mouth ity of tablet 00:00: 00:00 in the [place] 00 :00 morning. Medical Branch simvastatin 2-0 2- No 40mg Take 40 mg [facility] 40 mg 3-05 28-07 by mouth ity of tablet 00:00: 00:00 in the [place] 00 :00 morning. Medical Branch mycophenola 2020-2021- No 500mg Take 500 [facility] te mofetil 2-06 10-07 mg by ity of 500 mg 00:00: 00:00 mouth. [place] tablet 00 :00 Medical Branch mycophenola 2020-2021- No 500mg Take 500 [facility] te mofetil 2-06 10-07 mg by ity of 500 mg 00:00: 00:00 mouth. [place] tablet 00 :00 Medical Branch venlafaxine 2020-2021- No 150mg Take 150 [facility] XR 150 mg 1-30 10-07 mg by ity of 24 hr 00:00: 00:00 mouth in [place] capsule 00 :00 the Medical morning. Branch venlafaxine 2020-2021- No 150mg Take 150 [facility] XR 150 mg 1-30 10-07 mg by ity of 24 hr 00:00: 00:00 mouth in [place] capsule 00 :00 the Medical morning. Branch Venlafaxine 2020- Yes 75mg Take 75 mg [facility] 75 mg 1-29 by mouth ity of tablet 00:00: in the [place] 00 morning. Medical Branch Venlafaxine 2020- Yes 75mg Take 75 mg [facility] 75 mg 1-29 by mouth ity of tablet 00:00: in the [place] 00 morning. Medical Branch Venlafaxine 2020-1 Yes 75mg Take 75 mg [facility] 75 mg 1-29 by mouth ity of tablet 00:00: in the [place] 00 morning. Medical Branch Venlafaxine 2020- Yes 75mg Take 75 mg [facility] 75 mg 1-29 by mouth ity of tablet 00:00: in the [place] 00 morning. Medical Branch Venlafaxine 2020-1 Yes 75mg Take 75 mg [facility] 75 mg 1-29 by mouth ity of tablet 00:00: in the [place] 00 morning. Medical Branch Venlafaxine 2020-1 Yes 75mg Take 75 mg [facility] 75 mg 1-29 by mouth ity of tablet 00:00: in the [place] 00 morning. Medical Branch Venlafaxine 2020-1 Yes 75mg Take 75 mg [facility] 75 mg 1-29 by mouth ity of tablet 00:00: in the [place] 00 morning. [facility] Venlafaxine 2020-11 Yes 75mg Take 75 mg [facility] 75 mg 1-29 by mouth ity of tablet 00:00: in the [place] 00 morning. [facility] Venlafaxine 2020-11 Yes 75mg Take 75 mg [facility] 75 mg 1-29 by mouth ity of tablet 00:00: in the [place] 00 morning. [facility] Venlafaxine 2020- Yes 75mg Take 75 mg [facility] 75 mg 1-29 by mouth ity of tablet 00:00: in the [place] 00 morning. [facility] Venlafaxine 2020-11 Yes 75mg Take 75 mg [facility] 75 mg 1-29 by mouth ity of tablet 00:00: in the [place] 00 morning. [facility] Venlafaxine 2020-11 Yes 75mg Take 75 mg [facility] 75 mg 1-29 by mouth ity of tablet 00:00: in the [place] 00 morning. [facility] Venlafaxine 2020- Yes 75mg Take 75 mg [facility] 75 mg 1-29 by mouth ity of tablet 00:00: in the [place] 00 morning. [facility] Venlafaxine 2020-11 Yes 75mg Take 75 mg [facility] 75 mg 1-29 by mouth ity of tablet 00:00: in the [place] 00 morning. [facility] Venlafaxine 2020-11 Yes 75mg Take 75 mg [facility] 75 mg 1-29 by mouth ity of tablet 00:00: in the [place] 00 morning. [facility] Venlafaxine 2020-11 Yes 75mg Take 75 mg [facility] 75 mg 1-29 by mouth ity of tablet 00:00: in the [place] 00 morning. [facility] Venlafaxine 2020-11 Yes 75mg Take 75 mg [facility] 75 mg 1-29 by mouth ity of tablet 00:00: in the [place] 00 morning. [facility] Venlafaxine 2020-11 Yes 75mg Take 75 mg [facility] 75 mg 1-29 by mouth ity of tablet 00:00: in the [place] 00 morning. [facility] Branch traZODone 2020-11- No 100mg Take [facility] 100 mg 1-10 10-07 100-200 mg ity of tablet 00:00: 00:00 by mouth [place] 00 :00 in the Medical morning. Branch traZODone 2020-11- No 100mg Take [facility] 100 mg 11-28 100-200 mg ity of tablet 00:00: 00:00 by mouth [place] 00 :00 in the Medical morning. Branch azaTHIOprin 2020-11- No 75mg Take 75 mg [facility] e 50 mg 11-23 by mouth ity of tablet 00:00: 00:00 in the [place] 00 :00 morning. Medical Branch azaTHIOprin 2020-11- No 75mg Take 75 mg [facility] e 50 mg 11-23 by mouth ity of tablet 00:00: 00:00 in the [place] 00 :00 morning. Medical Branch Immunizations Ordered Filled Immunization Date Status Comments [facility] e Immunization Name Name Influenza Virus 2022-08-25 Completed [facility] Vaccine [facility] IM, 00:00:00 [place] [facility] Preserv and ABX Branch Free 6 MO-64 YRS Influenza Virus 2022-08-25 Completed [facility] of Vaccine Quad IM, 00:00:00 [place] [facility] Preserv and ABX Branch Free 6 MO-64 YRS Influenza Virus 2022-08-25 Completed [facility] of Vaccine Quad IM, 00:00:00 [place] [facility] Preserv and ABX Branch Free 6 MO-64 YRS Influenza Virus 2022-08-25 Completed [facility] of Vaccine Quad IM, 00:00:00 [place] [facility] Preserv and ABX Branch Free 6 MO-64 YRS Influenza Virus 2022-08-25 Completed [facility] of Vaccine Quad IM, 00:00:00 [place] [facility] Preserv and ABX Branch Free 6 MO-64 YRS Influenza Virus 2022-08-25 Completed [facility] of Vaccine Quad IM, 00:00:00 [place] [facility] Preserv and ABX Branch Free 6 MO-64 YRS Influenza Virus 2022-08-25 Completed [facility] of Vaccine Quad IM, 00:00:00 [place] [facility] Preserv and ABX Branch Free 6 MO-64 YRS Influenza Virus 2022-08-25 Completed [facility] of Vaccine Quad IM, 00:00:00 [place] [facility] Preserv and ABX Branch Free 6 MO-64 YRS Influenza Virus 2022-08-25 Completed [facility] of Vaccine Quad IM, 00:00:00 [place] [facility]ical Preserv and ABX Branch Free 6 MO-64 YRS Influenza Virus 2022-08-25 Completed [facility] of Vaccine Quad IM, 00:00:00 [place] Me [facility]ical Preserv and ABX Branch Free 6 MO-64 YRS Influenza Virus 2022-08-25 Completed [facility] of Vaccine Quad IM, 00:00:00 [place] Me [facility]ical Preserv and ABX Branch Free 6 MO-64 YRS Influenza Virus 2022-08-25 Completed [facility] of Vaccine Quad IM, 00:00:00 [place] [facility]ical Preserv and ABX Branch Free 6 MO-64 YRS Influenza Virus 2022-08-25 Completed [facility] of Vaccine Quad IM, 00:00:00 [place] Me dical Preserv and ABX Branch Free 6 MO-64 YRS Influenza Virus 2022-08-25 Completed [facility] of Vaccine Quad IM, 00:00:00 [place] [facility]ical Preserv and ABX Branch Free 6 MO-64 YRS Influenza Virus 2022-08-25 Completed [facility] of Vaccine Quad IM, 00:00:00 [place] [facility]ical Preserv and ABX Branch Free 6 MO-64 YRS Influenza Virus 2022-08-25 Completed [facility] of Vaccine Quad IM, 00:00:00 [place] [facility]ical Preserv and ABX Branch Free 6 MO-64 YRS Influenza Virus 2022-08-25 Completed [facility] of Vaccine Quad IM, 00:00:00 [place] [facility]ical Preserv and ABX Branch Free 6 MO-64 YRS Influenza Virus 2022-08-25 Completed [facility] of Vaccine Quad IM, 00:00:00 [place] [facility] Preserv and ABX Branch Free 6 MO-64 YRS Zoster(Zostavax)( 2021-08-19 Completed Unive rsity of ingles) 00:00:00 [facility] Zoster(Zostavax)( 2021-08-19 Completed Unive rsity of ingles) 00:00:00 [facility] Zoster(Zostavax)( 2021-08-19 Completed Unive rsity of ingles) 00:00:00 [facility] Zoster(Zostavax)( 2021-08-19 Completed [facility]ive rsity of ingles) 00:00:00 [facility] Zoster(Zostavax)( 2021-08-19 Completed [facility]ive rsity of ingles) 00:00:00 [facility] Zoster(Zostavax)( 2021-08-19 Completed Unive rsity of ingles) 00:00:00 [facility] Zoster(Zostavax)( 2021-08-19 Completed Unive rsity of ingles) 00:00:00 [facility] Zoster(Zostavax)( 2021-08-19 Completed Unive rsity of ingles) 00:00:00 [facility] Zoster(Zostavax)( 2021-08-19 Completed Unive rsity of ingles) 00:00:00 [facility] Zoster(Zostavax)( 2021-08-19 Completed Unive rsity of ingles) 00:00:00 [facility] Zoster(Zostavax)( 2021-08-19 Completed Unive rsity of ingles) 00:00:00 [facility] Zoster(Zostavax)( 2021-08-19 Completed Unive rsity of ingles) 00:00:00 [facility] Zoster(Zostavax)( 2021-08-19 Completed Unive rsity of ingles) 00:00:00 [facility] Zoster(Zostavax)( 2021-08-19 Completed Unive rsity of ingles) 00:00:00 [facility] Zoster(Zostavax)( 2021-08-19 Completed Unive rsity of ingles) 00:00:00 [facility] Zoster(Zostavax)( 2021-08-19 Completed Unive rsity of ingles) 00:00:00 [facility] Zoster(Zostavax)( 2021-08-19 Completed Unive rsity of ingles) 00:00:00 [facility] Zoster(Zostavax)( 2021-08-19 Completed Unive rsity of ingles) 00:00:00 [facility] Influenza Virus 2016-08-20 Completed Universit y of Vaccine Quad .5 mL 00:00:00 [facility] 6+ MO Branch Influenza Virus 2016-08-20 Completed Universit y of Vaccine Quad .5 mL 00:00:00 [facility] 6+ MO Branch Influenza Virus 2016-08-20 Completed Universit y of Vaccine Quad .5 mL 00:00:00 [facility] 6+ MO Branch Influenza Virus 2016-08-20 Completed Universit y of Vaccine Quad .5 mL 00:00:00 [facility] 6+ MO Branch Influenza Virus 2016-08-20 Completed Universit y of Vaccine Quad .5 mL 00:00:00 [facility] 6+ MO Branch Influenza Virus 2016-08-20 Completed Universit y of Vaccine Quad .5 mL 00:00:00 [facility] 6+ MO Branch Influenza Virus 2016-08-20 Completed Universit y of Vaccine Quad .5 mL 00:00:00 [facility] 6+ MO Branch Influenza Virus 2016-08-20 Completed Universit y of Vaccine Quad .5 mL 00:00:00 [facility] 6+ MO Branch Influenza Virus 2016-08-20 Completed Universit y of Vaccine Quad .5 mL 00:00:00 [facility] 6+ MO Branch Influenza Virus 2016-08-20 Completed Universit y of Vaccine Quad .5 mL 00:00:00 [facility] 6+ MO Branch Influenza Virus 2016-08-20 Completed Universit y of Vaccine Quad .5 mL 00:00:00 [facility] 6+ MO Branch Influenza Virus 2016-08-20 Completed Universit y of Vaccine Quad .5 mL 00:00:00 [facility] 6+ MO Branch Influenza Virus 2016-08-20 Completed Universit y of Vaccine Quad .5 mL 00:00:00 [facility] 6+ MO Branch Influenza Virus 2016-08-20 Completed Universit y of Vaccine Quad .5 mL 00:00:00 [facility] 6+ MO Branch Influenza Virus 2016-08-20 Completed Universit y of Vaccine Quad .5 mL 00:00:00 [facility] 6+ MO Branch Influenza Virus 2016-08-20 Completed Universit y of Vaccine Quad .5 mL 00:00:00 [facility] 6+ MO Branch Influenza Virus 2016-08-20 Completed Universit y of Vaccine Quad .5 mL 00:00:00 [facility] 6+ MO Branch Influenza Virus 2016-08-20 Completed Universit y of Vaccine Quad .5 mL 00:00:00 [facility] 6+ MO [facility] TDAP 2016-08-19 Completed University of 00:00:00 [facility] TDAP 2016-08-19 Completed University of 00:00:00 [facility] TDAP 2016-08-19 Completed University of 00:00:00 [facility] TDAP 2016-08-19 Completed University of 00:00:00 [facility] TDAP 2016-08-19 Completed University of 00:00:00 [facility] TDAP 2016-08-19 Completed University of 00:00:00 [facility] TDAP 2016-08-19 Completed University of 00:00:00 [facility] TDAP 2016-08-19 Completed University of 00:00:00 [facility] TDAP 2016-08-19 Completed University of 00:00:00 [facility] TDAP 2016-08-19 Completed University of 00:00:00 [facility] TDAP 2016-08-19 Completed University of 00:00:00 [facility] TDAP 2016-08-19 Completed University of 00:00:00 [facility] TDAP 2016-08-19 Completed University of 00:00:00 [facility] TDAP 2016-08-19 Completed University of 00:00:00 [facility] TDAP 2016-08-19 Completed University of 00:00:00 [facility] TDAP 2016-08-19 Completed University of 00:00:00 [facility] TDAP 2016-08-19 Completed University of 00:00:00 [facility] TDAP 2016-08-19 Completed University of 00:00:00 [facility] Vital Signs Vital Name Observation Time Observation Value Comments Source Systolic blood 2022-12-01 17:55:00 123 mm[Hg] Univer sity of pressure [facility] Diastolic blood 2022-12-01 17:55:00 79 mm[Hg] Unive rsity of [facility] Heart rate 2022-12-01 17:55:00 98 /min [facility] Body temperature 2022-12-01 17:55:00 36.72 [facility] Res[facility] rate 2022-12-01 17:55:00 18 /min [facility] Body height 2022-12-01 17:55:00 160 cm [facility] Body weight 2022-12-01 17:55:00 92.534 kg [facility] BMI 2022-12-01 17:55:00 36.14 kg/m2 [facility] Systolic blood 2022-09-15 18:25:00 133 mm[Hg] Univer sity of pressure [facility] Diastolic blood 2022-09-15 18:25:00 81 mm[Hg] Unive rsity of pressure [facility] Heart rate 2022-09-15 18:25:00 74 /min Universi ty of [facility] Body temperature 2022-09-15 18:25:00 36.83 [facility]issa [facility] Respiratory rate 2022-09-15 18:25:00 18 /min Univ ersity of [facility] Body height 2022-09-15 18:25:00 160 cm Universi ty of [facility] Body weight 2022-09-15 18:25:00 92.987 kg Universi ty of [facility] BMI 2022-09-15 18:25:00 36.31 kg/m2 Universi ty of [facility] Systolic blood 2022-08-25 14:00:00 137 mm[Hg] Univer sity of pressure [facility] Diastolic blood 2022-08-25 14:00:00 83 mm[Hg] Unive rsity of pressure [facility] Heart rate 2022-08-25 13:59:00 79 /min Universi ty of [facility] Body temperature 2022-08-25 13:59:00 36.83 [facility] Body height 2022-08-25 13:59:00 160 cm Universi ty of [facility] Body weight 2022-08-25 13:59:00 91.627 kg Universi ty of [facility] BMI 2022-08-25 13:59:00 35.78 kg/m2 Universi ty [facility] Oxygen saturation in 2022-08-25 13:59:00 97 /min [facility] blood by [facility] Pulse oximetry Branch Procedures Procedure Date / Time Performing Clinician Source Performed POCT URINALYSIS W/O 2022-12-01 17:57:00 Katya Castillo [facility] SPECIFIC GRAVITY [facility] POCT URINALYSIS W/O 2022-09-15 18:39:00 Katya Castillo [facility] GRAVITY [facility] PATIENT QUESTIONNAIRE 2022-09-15 05:01:00 Doctor Unassigned, No [facility] Name [facility] Branch FLU VACC ([id number]), 6 2022-08-25 14:37:31 Josep Antunez [facility] MO-64 YRS, .5ML, IM, Medical [facility] QUAD (FLUCELVAX) PATIENT QUESTIONNAIRE 2022-08-25 05:01:00 Doctor Unassigned, No [facility] acute hospital Branch Encounters Start End Encounter Admission Attending Care Care Encounter Source Date/Time Date/Time Type Type Clinicians Facility Department ID 2023-01-11 2023-01-11 Refill Tulio [facility] [id number] Univers 00:00:00 00:00:00 Josep HEALTH [id number] it y of [facility] [id number] Endy as SUDARSHAN?BLEA [id number] [address] OFFICE [facility] 2022-12-01 2022-12-01 Outpatient R [facility] [id number] Univers 11:30:00 12:26:52 KATYA lilly [facility] 2022-12-01 2022-12-01 Office [facility] [id number] Univers 11:30:00 12:26:52 Visit Katya DUPONT [id number] i ty [place] [id number] [address] 2022-09-18 2022-09-18 Patient Tulio [facility] [id number] Univers 00:00:00 00:00:00 Secure Msg Josep HEALTH [id number] ity of [facility] [id number] Endy as SUDARSHAN?BLEA [id number] [address] OFFICE [facility] 2022-09-18 2022-09-18 Telephone [facility] [id number] Univers 00:00:00 00:00:00 Katya DUPONT [id number] i ty [place] [id number] [facility] NAL [address] [place] [address] 2022-09-15 2022-09-15 Outpatient R [facility] [id number] Univers 13:30:00 14:09:42 KATYA lilly [facility] 2022-09-15 2022-09-15 Office [facility] [id number] Univers 13:30:00 14:09:42 Visit Katya DUPONT [id number] i ty [place] [id number] Ga dical NAL 098 [facility] 2022-09-15 2022-09-15 Orders Doctor REBECA [id number] Univers 00:00:00 00:00:00 Only Unassigned, ALL [id number] ity of [place] [facility] 4.2.7.2.686 Endy as [id number] [address] 2022-09-11 2022-09-11 Telephone [facility] [id number] Univers 00:00:00 00:00:00 [facility] [id number] it y of [place] [id number] Endy as SUDARSHAN?BLEA [phone] Ga dicapril CASILLAS 044 [facility] [place] 2022-09-08 2022-09-08 [facility] [id number] Univers 13:30:00 13:30:00 KATYA lilly [facility] 2022-08-31 2022-08-31 Patient [facility] [id number] Univers 00:00:00 00:00:00 Secure Msg [facility] [id number] ity of [place] [id number] Endy as SUDARSHAN?BLEA [phone] Ga dical KENISHA 044 [facility] 2022-08-25 2022-08-25 [facility], Ang - Db [facility] [id number] Univers 10:00:00 10:15:00 Visit Josep Antunez [facility] [id number] ity of [place] [id number] Endy as SUDARSHAN?BLEA [phone] Ga dical KNEY 353 [facility] 2022-08-25 2022-08-25 Outpatient R TULIO [facility] [id number] Univers 09:00:00 09:55:08 JOSEP itgermain of [facility] 2022-08-25 2022-08-25 Office Tulio [facility] [id number] Univers 09:00:00 09:55:08 Visit Josep ARGUELLES 350.1.13.10 it y of [facility] [id number] Endy as SUDARSHAN?BLEA [phone] Ga dical [address] MEDICAL OFFICE BUILDING 2022-08-25 2022-08-25 Orders Doctor REBECA [id number] Univers 00:00:00 00:00:00 Only Unassigned, ALL 350.1.13.10 ity of [place] [facility] [id number] Endy as [id number] [address] 2020-10-06 2020-10-06 Outpatient vanessa [facility] [address] [place] 02:24:00 02:24:00 [facility] Results Test Description Test Time Test Comments Results Result Comments Source POCT URINALYSIS W/O SPECIFIC GRAVITY 2022-12-01 17:57:00 Test Item Value Reference Range Interpretation Comme nts POCT PH U (test code = 3254) 6 mg/dl 5-8 POCT U LEUK EST (test code = negative Negative - Negative 3263) POCT U NIT (test code = 3262) negative Negative - Negative POCT U PROT (test code = 3259) negaitve Negative - Negative POCT U GLU (test code = 3256) negative Negative - Negative POCT U KETONE (test code = negaitve Negative - Negative 3258) POCT U BLD (test code = 3257) negative Negative - Negative BOSTON (test code = BOSTON) Per order PVR by bladder scan = ?71 ml. Results [facility] [id number] 17:57:00 Test Item Value Reference Range Interpretation Comments POCT PH U (test code 6 mg/dl 5-8 = 3254) POCT U LEUK EST negative Negative - Negative (test code = 3263) POCT U NIT (test negative Negative - Negative code = 3262) POCT U PROT (test negaitve Negative - Negative code = 3259) POCT U GLU (test negative Negative - Negative code = 3256) POCT U KETONE (test negaitve Negative - Negative code = 3258) POCT U BLD (test negative Negative - Negative code = 3257) BOSTON (test code = Per order PVR by BOSTON) bladder scan = ?71 ml. Results reported to provider. [facility] URINALYSIS W/O SPECIFIC [id number] 18:41:00 Test Item Value Reference Range Interpretation Comments POCT PH U (test code 6 mg/dl 5-8 = 3254) POCT U LEUK EST negative Negative - Negative (test code = 3263) POCT U NIT (test negative Negative - Negative code = 3262) POCT U PROT (test negative Negative - Negative code = 3259) POCT U GLU (test negative Negative - Negative code = 3256) POCT U KETONE (test negatve Negative - Negative code = 3258) POCT U BLD (test negative Negative - Negative code = 3257) BOSTON (test code = Per order PVR by BOSTON) bladder scan = ? 3 ml. Results reported to provider. [facility] URINALYSIS W/O SPECIFIC [id number] 18:41:00 Test Item Value Reference Range Interpretation Comments POCT PH U (test code 6 mg/dl 5-8 = 3254) POCT U LEUK EST negative Negative - Negative (test code = 3263) POCT U NIT (test negative Negative - Negative code = 3262) POCT U PROT (test negative Negative - Negative code = 3259) POCT U GLU (test negative Negative - Negative code = 3256) POCT U KETONE (test negatve Negative - Negative code = 3258) POCT U BLD (test negative Negative - Negative code = 3257) BOSTON (test code = Per order PVR by BOSTON) bladder scan = ? 3 ml. Results reported to provider. [facility] URINALYSIS W/O SPECIFIC [id number] 18:41:00 Test Item Value Reference Range Interpretation Comments POCT PH U (test code 6 mg/dl 5-8 = 3254) POCT U LEUK EST negative Negative - Negative (test code = 3263) POCT U NIT (test negative Negative - Negative code = 3262) POCT U PROT (test negative Negative - Negative code = 3259) POCT U GLU (test negative Negative - Negative code = 3256) POCT U KETONE (test negatve Negative - Negative code = 3258) POCT U BLD (test negative Negative - Negative code = 3257) BOSTON (test code = Per order PVR by BOSTON) bladder scan = ? 3 ml. Results reported to provider. [facility]
[2023-01-31 20:07] LABS: Hematocrit 43.3 % (36.0-45.0); Lymphocytes % 10.5 % (15.3-44.8); MCV 85.3 fL (80-100); MPV 6.9 fL (7.6-11.3); RBC Red Blood Cell Count 5.07 M/uL (3.86-4.86)
[2023-01-31 20:23] LABS: Albumin 3.8 g/dL (3.4-5.0); Bilirubin Total 0.4 mg/dL (0.2-1.0); Potassium 3.2 mmol/L (3.5-5.1); Protein, Total 7.9 g/dL (6.4-8.2)
[2023-01-31] MEDS ORDERED: METOCLOPRAMIDE 10 MG/2mL INJ ONE (21:02)
[2023-01-31] MEDS ORDERED: MORPHINE 4 MG/ML SYR ONE (21:02)
[2023-01-31] MEDS ORDERED: ONDANSETRON 4 MG/2 ML VIAL ONE (21:02)
[2023-01-31] MEDS ORDERED: NA CHLORIDE 0.9% 1,000 ML ONE (21:02)
--- NOTE | 2023-01-31 21:26 | RAD REPORT ---
EXAM DESCRIPTION: CT - Chest Abdomen Pelvis W Cont - 01/31/2023 9:18 pm CLINICAL HISTORY: Chest and abdomen pain. ABD PAIN COMPARISON: No comparisons TECHNIQUE: Approximately 100 mL nonionic IV contrast was administered to the patient. All CT scans are performed using dose optimization technique as appropriate and may include automated exposure control or mA/KV adjustment according to patient size. FINDINGS: The lungs are clear.Small hiatal hernia.No pleural or pericardial effusion.No intrathoraci c adenopathy. The liver, spleen, pancreas, adrenal glands and kidneys are within normal limits. Small nonobstructin g left renal calculus. No bowel obstruction, free air, free fluid or abscess. Normal appendix. No pathologic lymphadenopath y in the abdomen or pelvis. No worrisome osseous finding. IMPRESSION: No acute process is identified.Small hiatal hernia.
--- NOTE | 2023-01-31 22:15 | ER ---
Nurse's Notes [facility] Name: Trena Carter Age: 58 yrs Sex: Female : 1965 Arrival Date: 01/31/2023 Time: 18:44 Bed 3 Private MD: Diagnosis: Vomiting, unspecified;Acute vomiting, reaction to propofol, acute gastritis, adverse reaction to general anesthesia Presentation: 01/31 19:03 Chief complaint: Patient states: "I've been vomiting and can't keep anything down mb9 today. I had an EGD/colonoscopy done yesterday and don't know if its related to that or not. I have a hiatal hernia and hurting. I'm so nauseous and lightheaded". Coronavirus screen: Vaccine status: Patient reports receiving the 2nd dose of the covid vaccine. Ebola Screen: No symptoms or risks identified at this time. Initial Sepsis Screen: Does the patient meet any 2 criteria? No. Patient's initial sepsis screen is negative. Does the patient have a suspected source of infection? No. Patient's initial sepsis screen is negative. Risk Assessment: Do you want to hurt yourself or someone else? Patient reports no desire to harm self or others. Onset of symptoms was January 31, 2023. 19:03 Method Of Arrival: Ambulatory mb9 19:03 Acuity: MILANA 3 mb9 Triage Assessment: 19:10 Respiratory: Airway is patent Respiratory effort is even, unlabored, Respiratory mb9 pattern is regular, symmetrical. GI: Abdomen is round Reports nausea, vomiting. Derm: Skin is pink, warm \\T\\ dry. Historical: - Allergies: 19:05 No Known Allergies; mb9 - Home Meds: 19:05 trazodone 100 mg Oral tablet [Active]; Ocuvite Adult 50 Plus 250 mg (90 mg-160 mg) oral mb9 capsule [Active]; Prednisone Oral [Active]; meloxicam oral [Active]; Simvastatin Oral [Active]; omeprazole Oral [Active]; montelukast oral [Active]; lamotrigine oral [Active]; solifenacin oral [Active]; - PMHx: 19:05 Autoimmune hepatitis; Anxiety; Depressive disorder; Hypercholesterolemia; mb9 - PSHx: 19:05 Total abdominal hysterectomy; mb9 - Immunization history:: Adult Immunizations up to date. - Social history:: Smoking status: Patient denies any tobacco usage or history of. - Family history:: not pertinent. Screenin:06 [facility] ED Fall Risk Assessment (Adult) Score/Fall Risk Level 0 - 2 = Low Risk. Abuse as6 screen: Denies threats or abuse. Denies injuries from another. Nutritional screening: No deficits noted. Tuberculosis screening: No symptoms or risk factors identified. Assessment: 21:05 General: Appears uncomfortable, ill, Behavior is cooperative, restless. Pain: Complains as6 of pain in epigastric area. Neuro: Level of Consciousness is awake, alert, obeys commands, Oriented to person, place, time, situation. Cardiovascular: Capillary refill < 3 seconds Patient's skin is warm and dry. Respiratory: Respiratory effort is even, unlabored. Respiratory: Respiratory effort is Respiratory pattern is regular, symmetrical. GI: Reports upper abdominal pain, intolerance of fluids, intolerance of food, nausea. Vital Signs: 19:03 BP 150 / 95; Pulse 70; Resp 20; Temp 97.4; Pulse Ox 100% ; Weight 95.25 kg; Height 5 mb9 ft. 3 in. ; Pain 7/10; 21:06 BP 161 / 83; Pulse 59; Resp 18 S; Pulse Ox 100% on R/A; as6 19:03 Body Mass Index 37.20 (95.25 kg, 160.02 cm) mb9 19:03 Pain Scale: Adult mb9 ED Course: 18:44 Patient arrived in ED. rg4 19:00 Moy Morataya MD is Attending Physician. sp4 19:05 Triage completed. mb9 19:10 Arm band placed on. mb9 19:53 CBC with Diff Sent. ah1 19:53 CMP Sent. ah1 19:53 Lipase Sent. ah1 20:35 Inserted saline lock: 20 gauge in right antecubital area, using aseptic technique. ah1 Blood collected. 20:41 Andrew Castro, GONZALO is Primary Nurse. as6 21:06 Bed in low position. Call light in reach. Side rails up X 1. as6 21:20 Chest Abdomen Pelvis W Cont In Process Unspecified. EDMS 22:12 Martin Matias MD is Referral Physician. sp4 Administered Medications: 21:05 Drug: NS 0.9% IV 1000 ml Route: IV; Rate: 1 bolus; Site: right antecubital; as6 21:05 Drug: Ondansetron IVP 4 mg Route: IVP; Site: right antecubital; as6 21:05 Drug: morphine IVP or IV 4 mg Route: IVP; Infused Over: 4 mins; Site: right antecubital;as6 21:05 Drug: metoCLOPramide IVP 10 mg Route: IVP; Site: right antecubital; as6 Medication: 21:06 VIS not applicable for this client. as6 Outcome: 22:14 Discharge ordered by MD. potts Signatures: Dispatcher [employer] Penelope Valladares rg4 Andrew Castro RN RN as6 Flora Hernandez RN RN mb9 Moy Morataya MD MD sp4 Maru Fish [facility]
--- NOTE | 2023-01-31 22:15 | EDPHYS ---
Physician Documentation [facility] Name: Trena Carter Age: 58 yrs Sex: Female : 1965 Arrival Date: 01/31/2023 Time: 18:44 Bed 3 Private MD: ED Physician Moy Morataya HPI: 01/31 19:00 This 58 yrs old Female presents to ER via Unassigned with complaints of Nausea/Vomiting.sp4 19:43 58 year old female presents with persistent vomiting and epigastric pain that has sp4 started after her EGD and Colonoscopy yesterday AM. Patient had her procedures done at the GI center by Dr. Matias and after release home she has developed pain, nausea and persistent vomiting. She is not able to keep any fluids down. Patient has denied hematemesis or bloody stools. . Historical: - Allergies: 19:05 No Known Allergies; mb9 - Home Meds: 19:05 trazodone 100 mg Oral tablet [Active]; Ocuvite Adult 50 Plus 250 mg (90 mg-160 mg) oral mb9 capsule [Active]; Prednisone Oral [Active]; meloxicam oral [Active]; Simvastatin Oral [Active]; omeprazole Oral [Active]; montelukast oral [Active]; lamotrigine oral [Active]; solifenacin oral [Active]; - PMHx: 19:05 Autoimmune hepatitis; Anxiety; Depressive disorder; Hypercholesterolemia; mb9 - PSHx: 19:05 Total abdominal hysterectomy; mb9 - Immunization history:: Adult Immunizations up to date. - Social history:: Smoking status: Patient denies any tobacco usage or history of. - Family history:: not pertinent. ROS: 19:45 Constitutional: Negative for fever, chills, and weight loss, Eyes: Negative for injury, sp4 pain, redness, and discharge, ENT: Negative for injury, pain, and discharge, Neck: Negative for injury, pain, and swelling, Cardiovascular: Negative for chest pain, palpitations, and edema, Respiratory: Negative for shortness of breath, cough, wheezing, and pleuritic chest pain, Abdomen/GI: Negative for hematemesis , or bloody stools, and constipation, Positive for Nausea, vomiting and epigastric pain. Back: Negative for injury and pain, : Negative for injury, bleeding, discharge, and swelling, MS/Extremity: Negative for injury and deformity, Skin: Negative for injury, rash, and discoloration, Neuro: Negative for headache, weakness, numbness, tingling, and seizure, Psych: Negative for depression, anxiety, Allergy/Immunology: Negative for hives, rash, and allergies, Endocrine: Negative for neck swelling, polydipsia, polyuria, polyphagia, and marked weight changes, Hematologic/Lymphatic: Negative for swollen nodes, abnormal bleeding, and unusual bruising. Exam: 19:45 Constitutional: This is a well developed, well nourished patient who is awake, alert, sp4 Dry heaving and vomiting on exam, uncomfortable appearing. Head/Face: Normocephalic, atraumatic. Eyes: Pupils equal round and reactive to light, extra-ocular motions intact. Lids and lashes normal. Conjunctiva and sclera are not injected. Cornea within normal limits. Periorbital areas with no swelling, redness, or edema. ENT: Nares patent. No nasal discharge, no septal abnormalities noted. Tympanic membranes are normal and external auditory canals are clear. Oropharynx with no redness, swelling, or masses, exudates, or evidence of obstruction, uvula midline. Mucous membranes moist. Neck: Trachea midline, no thyromegaly or masses palpated, and no cervical lymphadenopathy. Supple, full range of motion without nuchal rigidity, or vertebral point tenderness. No Meningismus. Chest/axilla: Normal chest wall appearance and motion. Nontender with no deformity. No lesions are appreciated. Cardiovascular: Regular rate and rhythm with a normal S1 and S2. No gallops, murmurs, or rubs. Normal PMI, no JVD. No pulse deficits. Respiratory: Lungs have equal breath sounds bilaterally, clear to auscultation and percussion. No rales, rhonchi or wheezes noted. No increased work of breathing, no retractions or nasal flaring. Abdomen/GI: Soft, with normal bowel sounds. No distension or tympany. No guarding or rebound. No evidence of tenderness throughout. Epigastric tenderness Back: No spinal tenderness. No costovertebral tenderness. Skin: Warm, dry with normal turgor. Normal color with no rashes, no lesions, and no evidence of cellulitis. MS/ Extremity: Pulses equal, no cyanosis. Neurovascular intact. Full, normal range of motion. Neuro: Awake and alert, GCS 15, oriented to person, place, time, and situation. Cranial nerves II-XII grossly intact. Motor strength 5/5 in all extremities. Sensory grossly intact. Psych: Awake, alert, with orientation to person, place and time. Behavior, mood, and affect are within normal limits. Vital Signs: 19:03 BP 150 / 95; Pulse 70; Resp 20; Temp 97.4; Pulse Ox 100% ; Weight 95.25 kg; Height 5 mb9 ft. 3 in. ; Pain 7/10; 21:06 BP 161 / 83; Pulse 59; Resp 18 S; Pulse Ox 100% on R/A; as6 19:03 Body Mass Index 37.20 (95.25 kg, 160.02 cm) mb9 19:03 Pain Scale: Adult mb9 MDM: 19:03 Patient medically screened. sp4 22:11 Differential diagnosis: Nonspecific abd pain, gastritis, pancreatitis, appendicitis, sp4 diverticulitis, viral gastroenteritis, gastroenteritis, Reaction to propofol, bowel or esophageal perforation after procedure, intractable vomiting. Data reviewed: vital signs, nurses notes, lab test result(s), CBC, electrolytes, hepatic panel, radiologic studies, CT scan. ED course: CT report reveals no acute abnormality on the CT chest abdomen pelvis with IV contrast. 01/31 19:03 Order name: Urinalysis W/Microscopic sp4 01/31 19:14 Order name: CT Chest W/ Con sp4 01/31 19:13 Order name: IV Saline Lock; Complete Time: 19:53 4 01/31 19:13 Order name: Labs collected and sent; Complete Time: 19:53 sp4 01/31 19:13 Order name: CBC with Diff; Complete Time: 21:00 sp4 01/31 19:13 Order name: CMP; Complete Time: 21:00 sp4 01/31 19:13 Order name: Lipase; Complete Time: 21:00 sp4 01/31 19:18 Order name: Chest Abdomen Pelvis W Cont; Complete Time: 21:43 EDMS Administered Medications: 21:05 Drug: NS 0.9% IV 1000 ml Route: IV; Rate: 1 bolus; Site: right antecubital; as6 21:05 Drug: Ondansetron IVP 4 mg Route: IVP; Site: right antecubital; as6 21:05 Drug: morphine IVP or IV 4 mg Route: IVP; Infused Over: 4 mins; Site: right antecubital;as6 21:05 Drug: metoCLOPramide IVP 10 mg Route: IVP; Site: right antecubital; as6 Disposition Summary: 01/31/23 22:14 Discharge Ordered Location: Home sp4 Problem: new sp4 Symptoms: have improved sp4 Condition: Stable sp4 Diagnosis - Vomiting, unspecified sp4 - Acute vomiting, reaction to propofol, acute gastritis, adverse reaction to general sp4 anesthesia Followup: sp4 - With: Martin Matias MD - When: 2 - 3 days - Reason: Re-evaluation by your physician Forms: - Medication Reconciliation Form sp4 - Thank You Letter sp4 - Antibiotic Education sp4 - Prescription Opioid Use sp4 Signatures: Dispatcher [employer] Andrew Beckett RN RN as6 Flora Hernandez RN RN mb9 Moy Morataya MD MD sp4 Corrections: (The following items were deleted from the chart) 19:17 19:14 Abdomen Pelvis W Con+CT.RAD.BRZ ordered. EDMS EDMS
[2023-02-01 07:05] VITALS: TEMP 97.4
[2023-02-01 07:07] VITALS: BP 137/79; O2SAT 94
== END 2023-01-31 22:43 | disposition home or self-care (01) ==
LOC: ER 18:40
DX: R11.10 Vomiting, unspecified (principal); T41.295A Adverse effect of other general anesthetics, initial encounter; K29.00 Acute gastritis without bleeding; T88.59XA Other complications of anesthesia, initial encounter; E78.00 Pure hypercholesterolemia, unspecified; F32.A Depression, unspecified; F41.9 Anxiety disorder, unspecified
CPT/HCPCS: 85025; 36415; 83690; 80053; 71260; 74177; Q9967; J2765; J2405; J7030